=== PATIENT | male | born 1985 | race Hispanic/Latino ===

== ENCOUNTER 2016-12-03 06:55 | Emergency (ER) | payer OTHER ==
[2016-12-03 07:00] VITALS: BP 122/76; PULSE 85; RESP 17; TEMP 98.3; O2SAT 98; BMI 31.6
--- NOTE | 2016-12-03 07:21 | ED PDOC ---
Arrival/HPI - General Chief Complaint: GI Problem Time Seen by Provider: 12/03/16 07:01 Historian: Patient - History of Present Illness Narrative History of Present Illness (Text): 12/03/16 07:15 A 30 year old male, whose past medical history includes OCD, anxiety/depression and allergies, presents to the emergency department complaining of worsening hemorrhoids for the past 2-3 days. Patient also notes he applied Preparation H on area last night for some relief. Patient's last BM was two days ago. Patient denies any abdominal pain or any other complaints at this time. PMD: Dr. Moore Medictions: Paxil and Zyrtec Time/Duration: Other (2-3 days) Symptom Onset: Sudden Symptom Course: Unchanged Activities at Onset: Rest Context: Home Associated Symptoms (Text): none Past Medical History - Provider Review Nursing Documentation Reviewed: Yes - Past History Past History: No Previous - Tetanus Immunization Tetanus Immunization: Unknown - Psychiatric Hx Depression: No Hx Emotional Abuse: No Hx Physical Abuse: No Hx Substance Use: No - Suicidal Assessment Feels Threatened In Home Enviroment: No Family/Social History - Physician Review Nursing Documentation Reviewed: Yes Family/Social History: No Known Family HX Smoking Status: no Hx Alcohol Use: No Hx Substance Use: No Allergies/Home Meds Allergies/Adverse Reactions: Allergies No Known Allergies Allergy (Verified 09/25/12 21:43) Home Medications: Home Meds Medication Instructions Recorded Confirmed Cholecalciferol (Vitamin D3) 2,000 iu PO DAILY 09/25/12 12/03/16 [Yonatan Natural D2000] Cetirizine HCl [Zyrtec Allergy] 10 mg PO DAILY 12/03/16 12/03/16 PARoxetine [Paxil] 30 mg PO DAILY 12/03/16 12/03/16 Review of Systems - Physician Review All systems were reviewed & negative as marked: Yes - Review of Systems Constitutional: Normal Eyes: Normal ENT: Normal Respiratory: Normal Cardiovascular: Normal Gastrointestinal: Normal. absent: Abdominal Pain Genitourinary Male: Other (hemorrhoids) Musculoskeletal: Normal Skin: Normal Neurological: Normal Endocrine: Normal Hemo/Lymphatic: Normal Psychiatric: Normal Physical Exam Vital Signs Reviewed: Yes Vital Signs Temp Pulse Resp BP Pulse Ox 12/03/16 06:59 98.3 F 85 17 122/76 98 Temperature: Afebrile Blood Pressure: Normal Pulse: Regular Respiratory Rate: Normal Appearance: Positive for: Well-Appearing, Non-Toxic, Comfortable Pain Distress: None Mental Status: Positive for: Alert and Oriented X 3 - Systems Exam Head: Present: Atraumatic, Normocephalic Pupils: Present: PERRL Extroacular Muscles: Present: EOMI Conjunctiva: Present: Normal Mouth: Present: Moist Mucous Membranes Neck: Present: Normal Range of Motion Respiratory/Chest: Present: Clear to Auscultation, Good Air Exchange. No: Respiratory Distress, Accessory Muscle Use Cardiovascular: Present: Regular Rate and Rhythm, Normal S1, S2. No: Murmurs Abdomen: Present: Normal Bowel Sounds. No: Tenderness, Distention, Peritoneal Signs Rectal: Present: Hemorrhoids (possibly internal), Normal Rectal Tone, Fissures ( one fissure noted; no bleeding). No: Rectal Tenderness, Gross Blood, Nodule/ Mass/Lesions Upper Extremity: Present: Normal Inspection. No: Cyanosis, Edema Lower Extremity: Present: Normal Inspection. No: Edema Neurological: Present: GCS=15, CN II-XII Intact, Speech Normal Skin: Present: Warm, Dry, Normal Color. No: Rashes Medical Decision Making ED Course and Treatment: 12/03/16 07:25 Impression: A 30 year old male with rectal pain Differential Diagnosis include but are not limited to: anal fissure, possibly hemorrhoids Plan: -- Reassess and disposition Prior Visits: Notes and results from previous visits were reviewed. Patient last reported to the emergency department on 09/25/12 for evaluation of anxiety. Patient seen by PES worker and advised to continue Lexapro and discontinue Latuda. Patient was discharged. Progress Notes: 12/03/16 07:[address] Lowe who came to the ED to evaluate patient, who believes patient to have anal fissure. Recommends patient to take Miralax and use baby wipes. Patient needs to follow up with PMD and Dr. Lowe. - Scribe Statement The provider has reviewed the documentation as recorded by the Joeyiblizzy White All medical record entries made by the Scribe were at my direction and personally dictated by me. I have reviewed the chart and agree that the record accurately reflects my personal performance of the history, physical exam, medical decision making, and the department course for this patient. I have also personally directed, reviewed, and agree with the discharge instructions and disposition. Disposition/Present on Arrival - Present on Arrival Any Indicators Present on Arrival: No History of DVT/PE: No History of Uncontrolled Diabetes: No Urinary Catheter: No History of Decub. Ulcer: No History Surgical Site Infection Following: None - Disposition Have Diagnosis and Disposition been Completed?: Yes Diagnosis: Anal fissure Disposition: HOME/ ROUTINE Disposition Time: 07:25 Patient Plan: Discharge Patient Problems: Current Active Problems Problem Status Onset Anal fissure Acute Condition: GOOD Discharge Instructions (ExitCare): Anal Fissure (ED) Additional Instructions: Mr. Saavedra, thank you for letting us take care of you today. Your provider was Dr. Michelle. You were treated for Anal Fissure. The emergency medical care you received today was directed at your acute symptoms. If you were prescribed any medication, please fill it and take as directed. It may take several days for your symptoms to resolve. Return to the Emergency Department if your symptoms worsen, do not improve, or if you have any other problems. Please contact your doctor or call one of the physicians/clinics you have been referred to that are listed on the Patient Visit Information form that is included in your discharge packet. Bring any paperwork you were given at discharge with you along with any medications you are taking to your follow up visit. Our treatment cannot replace ongoing medical care by a primary care provider (PCP) outside of the emergency department. Thank you for allowing the [facility] team to be part of your care today. If you had an X-Ray or CT scan: A Radiologist will review the ED reading if any change in treatment is needed we will contact you. If you had a blood, urine, or wound culture: It will take several days for the results, if any change in treatment is needed we will contact you. If you had an STI test: It will take 48 hours for the results. Please call after 1 week if you have not heard back. Prescriptions: Polyethylene Glycol 3350 [Miralax] 17 gm PO DAILY #1 Referrals: Maxim Moore MD [Primary Care Provider] - Follow up with primary Jean Pierre Lowe MD [Staff Provider] - Follow up with primary Forms: Air Visits Discharge (Indonesian), WORK NOTE
== END 2016-12-03 07:30 | disposition home or self-care (01) ==
LOC: ED 06:55
DX: K60.2 Anal fissure, unspecified (principal)